=== PATIENT | male | born 1975 | race Caucasian/White ===

== ENCOUNTER → 2020-07-19 | Outpatient (CLI) | payer BC ==
--- NOTE | 2020-07-19 08:34 | US ---
EXAMINATION TYPE: US liver DATE OF EXAM: 07/19/2020 COMPARISON: NONE CLINICAL HISTORY: R74.8 Abnormal levels of other serum enzymes. EXAM MEASUREMENTS: Liver Length: 15.3 cm Gallbladder Wall: 0.2 cm CBD: 0.3 cm Right Kidney: 11.5 x 6.6 x 5.7 cm Pancreas: hyperechoic Liver: fatty liver as is hyperechoic to right renal cortex. Gallbladder: wnl; Phrygian Cap is noted Evidence for sonographic Churchill's sign: no CBD: wnl Right Kidney: No hydronephrosis or masses seen; vessel wall calcifications are noted inferiorly. IMPRESSION: 1. No acute right upper quadrant ultrasound abnormality.
== END | disposition home or self-care (01) ==
LOC: RADUSWWP 07:16
PROVIDERS: ATTEND Family Medicine
DX: R74.8 Abnormal levels of other serum enzymes (principal)
CPT/HCPCS: 76705

== ENCOUNTER 2022-12-02 08:42 | Day surgery (SDC) | payer BC ==
[~2022-12-02 08:42] MED LIST: LACTATED RINGERS 1,000 ML IV SCH; LIDOCAINE 1% (10MG/ML) FOR IV START INTRADERMA PRN
[2022-12-02 09:13] VITALS: TEMP 97.1
[2022-12-02] MEDS ORDERED: PROPOFOL 10 MG/ML 20 ML VIAL IV ONE (10:13)
[2022-12-02] MEDS ORDERED: LIDOCAINE 2% INJ 20 MG/ML (2 ML VIAL) ONE (10:13)
--- NOTE | 2022-12-02 10:31 | P.PCN ---
Date of Procedure: 12/02/22 Procedure(s) Performed: Brief history: Patient is a pleasant 47-year-old white male scheduled for an elective upper endoscopy as well as colonoscopy as a part of evaluation of GERD and screening for colon cancer Procedure performed: Esophagogastroduodenoscopy with biopsy Colonoscopy with snare polypectomy Preoperative diagnosis: GERD Screening for colon cancer Anesthesia: MAC Procedure: After informed consent was obtained from the patient was brought into the endoscopy unit and IV sedation was administered by anesthesia under continuous monitoring. Initially upper endoscopy was done. The Olympus GF 160 video endoscope was inserted inserted into the mouth and esophagus intubated without any difficulty and was gradually advanced into the stomach and duodenum and carefully examined. The bulb and second part of the duodenum appeared normal. The scope was then withdrawn into the stomach adequately insufflated with air and upon careful examination the antrum had patchy areas of erythema consistent with gastritis and biopsies were done from this area. Mucosa of the with biopsy body, cardia and fundus appeared normal. The scope was then withdrawn into the esophagus. The GE junction was located at 40 cm to the incisors. It appeared regular . Linear erosions consistent with LA grade B reflux esophagitis Rest of the esophagus appeared normal. Patient tolerated the procedure well. At this time the patient continued to remain sedation. Initial digital rectal examination was normal. Olympus CF 160 video colonoscope was then inserted into the rectum and gradually advanced to the cecum without any difficulty. Careful examination was performed as the scope was gradually being withdrawn. The prep was excellent. The cecum, ascending colon, transverse colon, descending colon, sigmoid colon and rectum appeared normal. In the proximal rectum there was a 7 mm polyp removed by snare polypectomy. Retroflexion was performed in the rectum and no lesions were noted. Patient tolerated the procedure well. Impression: 1. Upper endoscopy revealed mild antral gastritis and linear erosions in the distal esophagus consistent with LA grade B reflux esophagitis 2. Colonoscopy revealed a 7 mm rectal polyp status post-polypectomy and the rest of the colon appeared normal Recommendations: Findings of this examination were discussed with the patient as well as his family. He was advised to follow with the biopsy results. Increase omeprazole to 20 mg twice daily to be taken half hour before breakfast and dinnertime and follow antireflux measures. 3 months and after that he was advised to decrease it to once daily half hour before dinnertime if the biopsy results adenoma he can have a repeat colonoscopy in 5 years
[2022-12-02 11:01] VITALS: BP 134/78; PULSE 78; RESP 18
== END 2022-12-02 11:20 | disposition home or self-care (01) ==
LOC: ORWHC2ENDO 08:42
PROVIDERS: ATTEND Internal Medicine Gastroenterology
DX: Z12.11 Encounter for screening for malignant neoplasm of colon (principal); K62.1 Rectal polyp; K29.50 Unspecified chronic gastritis without bleeding; K20.0 Eosinophilic esophagitis; K21.9 Gastro-esophageal reflux disease without esophagitis; I10 Essential (primary) hypertension; E78.5 Hyperlipidemia, unspecified; G47.33 Obstructive sleep apnea (adult) (pediatric); Z79.82 Long term (current) use of aspirin; Z79.899 Other long term (current) drug therapy
CPT/HCPCS: 88305; 45385; 43239; J2704; J2001

== ENCOUNTER 2023-03-10 19:48 | Outpatient (CLI) | payer BC | END 2023-03-11 23:59 | LOC: 3 N SLEEP 19:48 | PROVIDERS: ATTEND Internal Medicine Critical Care Medicine | DX: G47.33 Obstructive sleep apnea (adult) (pediatric) (principal); G47.36 Sleep related hypoventilation in conditions classified elsewhere; I10 Essential (primary) hypertension; K21.9 Gastro-esophageal reflux disease without esophagitis; E78.2 Mixed hyperlipidemia | CPT/HCPCS: 95811 ==

== ENCOUNTER → 2023-09-06 | Outpatient (CLI) | payer BC ==
--- NOTE | 2023-09-10 04:54 | MR ---
EXAMINATION TYPE: MR knee LT wo con DATE OF EXAM: 09/06/2023 COMPARISON: Outside bilateral knee x-rays August 31, 2023 HISTORY: Chronic left knee pain, swelling. History of prior surgery per patient. TECHNIQUE: Multiplanar, multisequence images of the knee is performed without IV contrast. FINDINGS: MEDIAL MENISCUS: Oblique irregular signal posterior horn extends to inferior articular surface sagitt al image 31. Less prominent oblique signal anterior horn extends to superior articular surface on sin gle image. LATERAL MENISCUS: Truncated appearance to posterior horn. CRUCIATE LIGAMENTS: The anterior and posterior cruciate ligaments are intact and unremarkable. COLLATERAL LIGAMENTS: The medial collateral ligament and lateral collateral ligament complex are inta ct and unremarkable. EXTENSOR MECHANISM: Visualized quadriceps and patellar tendons are intact. EFFUSION: There is large size suprapatellar joint effusion. POPLITEAL CYST: No popliteal/abdul cyst. TRICOMPARTMENT SPACES: Moderate tricompartment joint space loss and spurring. CARTILAGE: Some early cartilaginous loss medial and lateral tibiofemoral compartments. Mild to minima l chondromalacia patella. BONE MARROW SIGNAL: No focal abnormal marrow signal is appreciated. OTHER: No additional significant abnormality is appreciated. IMPRESSION: 1. Complex full-thickness tear posterior horn medial meniscus. 2. Oblique full-thickness tear anterior horn of medial meniscus. 3. Presumed postsurgical change to the posterior horn lateral meniscus, correlate clinically. 4. Moderately tricompartment degenerative changes are present as detailed above, findings somewhat pr ominent for patient's chronologic age. 5. Large size suprapatellar joint effusion.
== END | disposition home or self-care (01) ==
LOC: RADMRIMAIN 10:59
PROVIDERS: ATTEND Orthopaedic Surgery
DX: M17.12 Unilateral primary osteoarthritis, left knee (principal); M23.322 Other meniscus derangements, posterior horn of medial meniscus, left knee; M23.312 Other meniscus derangements, anterior horn of medial meniscus, left knee; M25.462 Effusion, left knee; Z98.890 Other specified postprocedural states

== ENCOUNTER → 2023-11-10 | Outpatient (CLI) | payer BC ==
[2023-11-10 18:58] LABS: Basophils # (A) 0.06 X 10*3/uL (0.00-0.10); Basophils % (A) 0.9 %; Eosinophils # (A) 0.11 X 10*3/uL (0.04-0.35); Eosinophils % (A) 1.6 %; HCT 43.1 % (39.6-50.0); HGB 14.9 g/dL (13.0-17.0); Lymphocytes # (A) 1.59 X 10*3/uL (0.90-5.00); Lymphocytes % (A) 23.1 %; MCH 31.2 pg (27.0-32.0); MCHC 34.6 g/dL (32.0-37.0); MCV 90.4 FL (80.0-97.0); Mean Platelet Volume 10.6 FL (9.5-12.2); Monocytes # (A) 0.76 X 10*3/uL (0.20-1.00); NRBC Per 100 WBC 0 X 10*3/uL (0.00-0.01); Neutrophils # (A) 4.34 X 10*3/uL (1.80-7.70); Platelet Count 216 X 10*3/uL (140-440); RBC 4.77 X 10*6/uL (4.40-5.60); RDW 12.1 % (11.5-14.5); WBC 6.89 X 10*3/uL (4.50-10.00)
[2023-11-10 19:36] LABS: Anion Gap 11.1 mmol/L (4.00-12.00); Carbon Dioxide 27.9 mmol/L (21.6-31.8); Potassium 4.3 mmol/L (3.5-5.5)
== END | disposition home or self-care (01) ==
LOC: LABPAT 14:46
PROVIDERS: ATTEND Orthopaedic Surgery
DX: Z01.812 Encounter for preprocedural laboratory examination (principal); M23.92 Unspecified internal derangement of left knee
CPT/HCPCS: 36415; 80051; 85025

== ENCOUNTER 2023-11-18 12:18 | Day surgery (SDC) | payer BC ==
[2023-11-15 15:13] VITALS: BMI 36.2
--- NOTE | 2023-11-17 14:37 | HP ---
HISTORY AND PHYSICAL DATE OF SURGERY: 11/18/2023. HISTORY OF PRESENT ILLNESS: Goyo Jon is a 48-year-old gentleman, who was seen with progressive left knee pain. We discussed options regarding treatment. He elected to proceed with left knee arthroscopy. Consent was obtained. Cardiac clearance was provided. PAST MEDICAL HISTORY: Hypertension, hyperlipidemia, cardiovascular disease. PAST SURGICAL HISTORY: Left knee arthroscopy. DAILY MEDICATIONS: 1. Omeprazole. 2. Amlodipine. 3. . 4. Vitamins. ALLERGIES: None. SOCIAL HISTORY: Denies tobacco use. PHYSICAL EVALUATION OF THE LEFT KNEE: His range of motion is 0 to 130 degrees. Moderate effusion. He has tenderness along the medial and lateral joint lines. A positive medial and lateral Debby's are present. Ligaments stable. Hip rotation without pain. Distal neurovascular exam is intact. IMAGING STUDIES: Left knee radiographs revealed moderate lateral compartment osteoarthritis. MRI of left knee revealed medial and lateral meniscal tears, osteoarthritic changes, and a large effusion. IMPRESSION: 1. Internal derangement of left knee with medial and lateral meniscal tears. 2. Hypertension. 3. Hyperlipidemia. 4. Cardiovascular disease. PLAN: Left knee arthroscopy with partial medial/lateral meniscectomy and debridement. MMODL / IJN: [id number] /
[~2023-11-18 12:18] MED LIST changes: +HYDROmorphone 0.5 MG/0.5 ML SYRINGE IVP PRN; -LIDOCAINE 1% (10MG/ML) FOR IV START INTRADERMA PRN; +SCOPOLAMINE 1 MG/72 HR PATCH TRANSDERM ONE; +droPERidol 5 MG/2 ML VIAL IVP ONE
[2023-11-18] MEDS: LACTATED RINGERS 1,000 ML IV ONE (12:41)
[2023-11-18] MEDS: ONDANSETRON 4 MG/2 ML VIAL IVP ONE (13:00)
[2023-11-18] MEDS: DEXAMETHASONE SOD PHOSPHATE 4 MG/ML 1 ML VIAL IV ONE (13:00)
[2023-11-18] MEDS: MIDAZOLAM 2 MG/2 ML VIAL IVP ONE (13:15)
[2023-11-18] MEDS: ceFAZolin 3 GM in SODIUM CHLORIDE 0.9% 100 ML IVPB PRN (13:53)
[2023-11-18] MEDS ORDERED: LIDOCAINE 1% INJ 10MG/ML (20 ML MDV) ONE (13:53)
[2023-11-18] MEDS ORDERED: MIDAZOLAM 2 MG/2 ML VIAL ONE (13:53)
[2023-11-18] MEDS ORDERED: KETOROLAC 15 MG/ML 1 ML VIAL ONE (13:53)
[2023-11-18] MEDS ORDERED: fentaNYL (PF) 50 MCG/ML 2 ML AMP ONE (13:53)
[2023-11-18] MEDS ORDERED: PROPOFOL 10 MG/ML 20 ML VIAL IV ONE (13:53)
[2023-11-18] MEDS: BUPIVACAINE (PF) 0.25% 30 ML VIAL SQ ONE ×2 (14:08→14:25)
--- NOTE | 2023-11-18 14:41 | P.OP ---
Date of Procedure: 11/18/23 Preoperative Diagnosis: Internal derangement left knee Postoperative Diagnosis: 1. Tear medial and lateral meniscus left knee 2. 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 Reactive synovitis medial, lateral and suprapatellar compartments left knee Procedure(s) Performed: 1. Arthroscopic partial medial and lateral meniscectomy left knee 2. Arthroscopic microfracture lateral femoral condyle left knee 3. Arthroscopic partial synovectomy medial, lateral and suprapatellar compartments left knee 4. Arthroscopic chondroplasty lateral femoral condyle left knee Anesthesia: BETHA, local Surgeon: Errol Lopez Estimated Blood Loss (ml): 5 Pathology: none sent Condition: stable Disposition: PACU Indications for Procedure: 48-year-old patient seen with progressive left knee pain. After having treatment options discussed, he elected to proceed with arthroscopy. Operative Findings: See description of procedure Description of Procedure: Patient was taken to the operative suite. Patient underwent a general anesthetic by the department of anesthesia. Patient was given preoperative antibiotics. The left lower extremity was placed in a well-padded arthroscopic leg cochran. The left leg was prepped and draped in the normal sterile orthopedic fashion. A lateral parapatellar and suprapatellar incision was made. Trochars were inserted. Arthroscopy was initiated. Suprapatellar pouch revealed diffuse thick reactive synovitis. The patellofemoral joint appeared to articular congruently. There was grade I chondromalacia patellofemoral joint without significant osteochondral tears. The scope was guided into the medial gutter. No loose bodies or plica were identified. The scope was then guided into the medial compartment. A medial parapatellar incision was made. Trocar inserted followed by probe. There was a complex tear involving the posterior horn and mid body of the medial meniscus. There were grade I chondromalacia changes diffusely about the medial compartment without tears. There was some thick reactive synovitis anteriorly. I performed a partial medial meniscectomy getting down to stable meniscal tissue. I performed a partial synovectomy decompressing the reactive synovitis. The residual meniscus was stable. There was good decompression of the synovitis. Scope and probe were then guided into the intercondylar notch. the cruciates were identified. The ACL appeared somewhat diminutive with some partial tearing.. The scope and probe were then guided into later there was good balance off the PCL. Intraoperatively had a +2 Nba but there was no endpoint felt. The scope was guided into lateral compartment. There was a lateral meniscal tear involving the posterior horn. There was an area of grade III/IV chondromalacia lateral femoral condyle with osteochondral flap tears. There was an area of grade II chondromalacia along the tibial plateau without significant tearing. There was thick reactive synovitis anteriorly. I performed a partial lateral meniscectomy getting down to stable meniscal tissue. I performed a chondroplasty of the lateral femoral condyle getting down to stable osteochondral tissue. I performed a partial synovectomy decompressing the reactive synovitis anteriorly. I did note an area of exposed bone weightbearing surface lateral femoral condyle measuring just about a centimeter. I now introduced a microfracture awl and I performed a microfracture to the area of exposed bone lateral femoral condyle penetrating the bone with resultant bleeding at the microfracture site. The residual meniscus was probed and was found to be stable. The residual osteochondral surface was stable. There was good decompression of the synovitis. The scope was in guided back into the suprapatellar compartment. I introduced a motorized shaver into the suprapatellar compartment. I debrided some piecemeal fragments of meniscus that I encountered. I performed a partial synovectomy. The shaver was now removed. There was good decompression of the synovitis. I now took 1 more look around the entire knee, no residual debris. Instruments were now removed from the joint. The joint was infiltrated with .25% Marcaine. Steri- Strips were applied to the portal sites. Sterile dressings were applied. The patient was placed into a JEREMIAH hose. No tourniquet was utilized. The patient was awakened, transferred to a bed and taken to recovery stable satisfactory condition.
[2023-11-18 15:09] VITALS: TEMP 97
[2023-11-18 15:44] VITALS: BP 136/87; PULSE 79; RESP 18
== END 2023-11-18 15:38 | disposition home or self-care (01) ==
LOC: OR 12:18
PROVIDERS: ATTEND Orthopaedic Surgery
DX: S83.232A Complex tear of medial meniscus, current injury, left knee, initial encounter (principal); S83.282A Other tear of lateral meniscus, current injury, left knee, initial encounter; M22.42 Chondromalacia patellae, left knee; M65.162 Other infective (teno)synovitis, left knee; E78.5 Hyperlipidemia, unspecified; I10 Essential (primary) hypertension; G47.33 Obstructive sleep apnea (adult) (pediatric); K21.9 Gastro-esophageal reflux disease without esophagitis; F17.200 Nicotine dependence, unspecified, uncomplicated; Z79.899 Other long term (current) drug therapy; Z91.040 Latex allergy status; X58.XXXA Exposure to other specified factors, initial encounter
CPT/HCPCS: 29880; 29879; J2250; J1100; J0690; J2405; J2001; J3010; J1885; J2704; J0665